=== PATIENT | male | born 1980 | race Caucasian/White ===

== ENCOUNTER 2018-09-18 16:18 | Emergency (ER) | payer SELFPAY ==
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
[2018-09-18] MEDS ORDERED: NS(*) 0.9% 1000 ML BAG 1,000 ML IV ONE (16:52)
[2018-09-18] MEDS ORDERED: ONDANSETRON 4 MG/2 ML VIAL IVP ONE (16:55)
[2018-09-18] MEDS ORDERED: DIPHTH/TETANUS/ACEL. PERTUSSIS IM ONE (16:55)
[2018-09-18] MEDS ORDERED: MORPHINE 4 MG/ML SDV IVP ONE (16:55)
[2018-09-18 17:14] LABS: PLATELET COUNT, AUTOMATED 212 K/uL (150-450)
[2018-09-18 17:22] LABS: INR 1.03
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
[2018-09-18] MEDS ORDERED: cefTRIAXone 1 GM VIAL IVP ONE (18:00)
[2018-09-18 18:12] VITALS: BP 146/82
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
== END 2018-09-18 18:30 | disposition short-term general hospital (02) ==
LOC: ER 16:37
DX: S06.4X0A Epidural hemorrhage without loss of consciousness, initial encounter (principal); S06.6X0A Traumatic subarachnoid hemorrhage without loss of consciousness, initial encounter; S02.19XA Other fracture of base of skull, initial encounter for closed fracture; V86.52XA Driver of snowmobile injured in nontraffic accident, initial encounter
CPT/HCPCS: 70450; 72125; 73090; 83605; 83690; 85025; 85610; 85730; 90715; 93005; 96361; 96374; 96375; 99285; J0696; J2270; J2405; J7030; L0172; 82040; 82247; 82310; 82374; 82435; 82565; 82947; 84075; 84132; 84155; 84295; 84450; 84460; 84520

== ENCOUNTER → 2018-09-18 | Outpatient (REF) ==
[~2018-09-18] MED LIST: AMO500 PO; AZIT1PAC21 PO; CEP500 PO; CEPH500C24 PO; ERYT1OIN3 OP; LOR5 PO; NO CURRENT MEDS; PEN250 PO; PENI-22 PO; PER PO; PRE20 PO
== END ==
LOC: AMB 15:18
PROVIDERS: ATTEND Nurse Practitioner
DX: Z76.89 Persons encountering health services in other specified circumstances (principal)

== ENCOUNTER → 2018-09-29 | Outpatient (REF) ==
--- NOTE | 2018-09-29 09:44 | RADIOLOGY IMAGING REPORT ---
FACILITY: [facility] [place] PATIENT NAME: Cristofer Ryan : 1980 MR: [id number] V: [id number] EXAM DATE: ORDERING PHYSICIAN: JOSE EDUARDO BANKS TECHNOLOGIST: Location: [facility] [place] Patient: Cristofer Ryan : 1980 Visit/Account:[id number] Date of Sevice: 09/29/2018 Exam type: L-SPINE 2 OR 3 VIEW History: Left left ventral thigh numbness Comparison: None. Findings: AP and lateral views lumbar spine were submitted There are five nonrib-bearing lumbar-type vertebral bodies present. There is no evidence of acute fr actures or subluxations. There is mild disc space narrowing at L4-5 and L1-2 and moderate disc space narrowing at L5-S1 Schmorl's nodes are incidentally noted at multiple levels IMPRESSION: 1. Spondylotic changes of lumbar spine as described. If patient's symptoms persist MR may be helpfu l Report Dictated By: Sienna Orona MD at 09/29/2018 9:38 AM Report E-Signed By: Sienna Orona MD at 09/29/2018 9:40 AM WSN:[email or web address]
== END ==
LOC: RAD 08:14
PROVIDERS: ATTEND Family Medicine
DX: M47.896 Other spondylosis, lumbar region (principal)
CPT/HCPCS: 72100

== ENCOUNTER → 2018-10-04 | Outpatient (CLI) | payer SELFPAY ==
--- NOTE | 2018-10-04 14:55 | RADIOLOGY IMAGING REPORT ---
FACILITY: [facility] [place] PATIENT NAME: Cristofer Ryan : 1980 MR: [id number] V: [id number] EXAM DATE: ORDERING PHYSICIAN: [facility] TECHNOLOGIST: [place] [facility] [place] Patient: Cristofer Ryan : 1980 Visit/Account:[id number] Date of Sevice: 10/04/2018 MR SPINE CERVICAL W/O CON COMPARISON: None Additional pertinent history: Cervical radiculopathy with difficulty moving the left arm. Technique: Multiplanar multisequence cervical spine MRI was performed without gadolinium enhancement. FINDINGS: Vertebral body height and alignment: Reversal of normal cervical lordosis centered at C6-C7 Vertebral marrow signal: Negative Vertebral bodies: Negative Cervical spinal cord signal, craniocervical junction and visualized posterior fossa: Negative Surrounding soft tissues: Negative Inspection of the disc spaces reveal the following: C1-C2: Negative C2-C3: Minimal circumferential disc bulging with facet hypertrophic changes. No significant canal or neural foraminal narrowing. C3-C4: Posterior broad-based disc protrusion with facet hypertrophic changes. Mild bilateral neural f oraminal narrowing without canal stenosis. C4-C5: Minimal circumferential disc bulging with facet hypertrophic changes. No significant canal or neural foraminal narrowing. C5-C6: Posterior broad-based disc protrusion with a superimposed left neural foraminal disc extrusion . Moderate left-sided neural foraminal narrowing. No significant right-sided neural foraminal narrowi ng. Mild canal stenosis. C6-C7: Posterior broad-based disc protrusion with facet hypertrophic changes. Mild bilateral neural f oraminal narrowing without canal stenosis. C7-T1: Minimal circumferential disc bulging without significant canal or neural foraminal narrowing. Impression: 1. Multilevel spondylitic change as discussed above. 2. Findings felt to be potentially most significant at C5-C6 with mild canal stenosis and moderate le ft-sided neural foraminal narrowing. Report Dictated By: Hossein Renee MD at 10/04/2018 2:34 PM Report E-Signed By: Hossein Renee MD at 10/04/2018 2:51 PM WSN:[email or web address]
--- NOTE | 2018-10-04 15:05 | RADIOLOGY IMAGING REPORT ---
FACILITY: [facility] PATIENT NAME: Cristofer Ryan : 1980 MR: [id number] V: [id number] EXAM DATE: ORDERING PHYSICIAN: [facility] TECHNOLOGIST: Location: [facility] [place] Patient: Cristofer Ryan : 1980 Visit/Account:[id number] Date of Sevice: 10/04/[address] scan without contrast COMPARISONS: September 18, 2018 ADDITIONAL PERTINENT HISTORY: Status post craniotomy TECHNIQUE: Multiple axial images were obtained from the skull base to the vertex without IV contrast . One of the following dose optimization techniques was utilized in the performance of this exam: Aut omated exposure control; adjustment of the mA and/or kV according to the patient's size; or use of an iterative reconstruction technique. Specific details can be referenced in the facility's radiology CT exam operational policy. FINDINGS: Midline shift: Negative Ventricles: Negative Brain parenchyma: Negative Extra-axial spaces: Patient status post previous left temporal craniotomy for evacuation of an under lying known left temporal epidural hematoma. 8 very small amount of mixed density fluid is noted over lying the anterior aspects of the left temporal lobe with maximum thickness of 5 mm. Tiny focus of ai r is noted overlying the anterior aspects of the left temporal lobe. Intracranial vasculature: Negative Osseous structures: Previous left temporal craniotomy. Otherwise negative Paranasal sinuses and mastoid air cells: Continued patchy opacification of the left mastoid air cell s. Otherwise negative Surrounding soft tissues and orbits: Negative IMPRESSION: 1. Patient status post previous left temporal craniotomy for evacuation of a previously described lef t temporal epidural hematoma with near complete resolution of extra-axial fluid overlying the left te mporal lobe. 2. No new findings from previous exam. Report Dictated By: Hossein Renee MD at 10/04/2018 2:51 PM Report E-Signed By: Hossein Renee MD at 10/04/2018 2:56 PM WSN:[id number]
== END ==
LOC: CT 01:03
DX: M47.893 Other spondylosis, cervicothoracic region (principal); Z98.890 Other specified postprocedural states
CPT/HCPCS: 70450; 72141

== ENCOUNTER → 2018-10-16 | Outpatient (REF) ==
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
--- NOTE | 2018-10-16 12:29 | RADIOLOGY IMAGING REPORT ---
FACILITY: [facility] [place] PATIENT NAME: Cristofer Ryan : 1980 MR: [id number] V: [id number] EXAM DATE: ORDERING PHYSICIAN: JOSE EDUARDO BANKS TECHNOLOGIST: Location: [facility] Patient: Cristofer Ryan : 1980 Visit/Account:[id number] Date of Sevice: 10/16/2018 Examination: Computed tomography left forearm without contrast. HISTORY: Injury. Forearm pain. Difficulty lifting. TECHNIQUE: Transaxial computed tomography images are obtained of the left forearm without IV contrast . Multiplanar reformatted images are created in the coronal and sagittal planes. COMPARISON: Exam is reviewed in conjunction with today's CT elbow exam. Prior plain films 09/18/2018 a re reviewed. FINDINGS: There is a comminuted intra-articular fracture involving the left radial head and neck proximally at the elbow. See today's elbow CT report for further detail. The remaining portions of the radius are n ormal. The ulna is unremarkable. No mid or distal forearm fracture is seen. With respect to the soft tissues of the forearm, no focal swelling or fluid collection is seen. The f lexor and extensor compartment musculature appears normal. IMPRESSION: 1. Comminuted fracture of the proximal left radial head and neck at the elbow joint. See today's elbo w CT report for further detail. 2. Otherwise, normal CT examination of the left forearm. Report Dictated By: Micah Soriano at 10/16/2018 12:19 PM Report E-Signed By: Micah Soriano at 10/16/2018 12:24 PM WSN:[id number]
== END ==
LOC: CT 02:29
PROVIDERS: ATTEND Family Medicine
DX: S52.122A Displaced fracture of head of left radius, initial encounter for closed fracture (principal); S52.132A Displaced fracture of neck of left radius, initial encounter for closed fracture; M25.422 Effusion, left elbow; X58.XXXA Exposure to other specified factors, initial encounter